=== PATIENT | female | born 1955 | race Caucasian/White ===

== ENCOUNTER 2016-10-18 20:05 | Emergency (ER) | payer BC ==
--- NOTE | 2016-10-18 20:12 | UC ---
Hypertension HPI - HPI Summary HPI Summary: 61 YEAR OLD FEMALE PRESENTS WITH COMPLAINS OF VISUAL CHANGES AND HYPERTENSION. I AM VERY CONCERNED ABOUT A STROKE AND WILL SEND HER TO THE ER. - History of Current Complaint Stated Complaint: TROUBLE WITH VISION/HIGH BP Time Seen by Provider: 10/18/16 20:11 - Allergies/Home Medications Allergies/Adverse Reactions: Allergies Allergy/AdvReac Type Severity Reaction Status Date / Time Codeine AdvReac Severe FLIPPED OUT Verified 10/18/16 20:15 Home Medications: Home Medications Omeprazole CAP* [Prilosec CAP* 20 MG] 40 mg PO DAILY 10/18/16 [History Confirmed 10/18/16] PMH/Surg Hx/FS Hx/Imm Hx Previously Healthy: Yes - Surgical History Surgical History: Yes Surgery Procedure, Year, and Place: 1958 TONSILECTOMY [facility]. 1998 HYSTERECTOMY [facility]. 1999 [facility] [place] [facility] - Social History Alcohol Use: Occasionally Substance Use Type: None Smoking Status (MU): Former Smoker Have You Smoked in the Last Year: No Review of Systems Constitutional: Negative Skin: Negative Eyes: Blurred Vision ENT: Negative Respiratory: Negative Cardiovascular: Negative Gastrointestinal: Negative Genitourinary: Negative Motor: Negative Neurovascular: Negative Musculoskeletal: Negative Neurological: Negative Psychological: Negative All Other Systems Reviewed And Are Negative: Yes Physical Exam Triage Information Reviewed: Yes Vital Signs Reviewed: Yes Eye Exam: Normal ENT Exam: Normal Dental Exam: Normal Neck exam: Normal Neck: Positive: 1 Respiratory Exam: Normal Cardiovascular Exam: Normal Abdominal Exam: Normal Musculoskeletal Exam: Normal Neurological Exam: Normal Psychological Exam: Normal Skin Exam: Normal Hypertension Course/Dx - Differential Dx/Diagnosis Provider Diagnoses: HYPERTENSION. VISUAL CHANGES Discharge - Discharge Plan Condition: Stable Disposition: HOME Patient Education Materials: Hypertension (ED), Blurred Vision (ED) Referrals: Ankit Lr DO [Primary Care Provider] - Additional Instructions: PLEASE GO TO ER TO RULE OUT STROKE.
[2016-10-18 20:15] VITALS: BP 190/95
== END 2016-10-18 20:30 | disposition home or self-care (01) ==
LOC: UCCORT 20:05
DX: I10 Essential (primary) hypertension (principal); H53.9 Unspecified visual disturbance; Z88.5 Allergy status to narcotic agent; Z87.891 Personal history of nicotine dependence
CPT/HCPCS: 99212; G0463